=== PATIENT | female | born 1980 | race Caucasian/White ===

== ENCOUNTER 2023-07-02 03:25 | Emergency (ER) | payer MEDICARE, MEDICAID ==
[~2023-07-02] VITALS: Ht 175.3 cm; Wt 130.0 kg
[2023-07-02 03:33] VITALS: BP 146/84; PULSE 99; RESP 14; TEMP 98.9; O2SAT 98
[2023-07-02] MEDS ORDERED: BENZOCAINE (DENTAL) 20 % SPRAY 60ML MT ONE (04:45)
[2023-07-02] MEDS ORDERED: cefTRIAXone SOD 1,000 MG VL IM ONE (05:15)
[2023-07-02] MEDS ORDERED: HYDR-4902 PO (22:26)
[2023-07-02] MEDS ORDERED: CLIN300C70 PO (22:26)
== END 2023-07-02 04:36 | disposition home or self-care (01) ==
LOC: ER 03:25
DX: K08.89 Other specified disorders of teeth and supporting structures (principal)
CPT/HCPCS: 96372; 99283; J0696

== ENCOUNTER 2023-07-02 20:37 | Emergency (ER) | payer MEDICARE, MEDICAID ==
[~2023-07-02] VITALS: Ht 175.3 cm; Wt 130.0 kg
[2023-07-02 20:47] VITALS: BP 130/89; PULSE 113; RESP 20; TEMP 98.8; O2SAT 98
[2023-07-02] MEDS ORDERED: DexAMETHasone SOD PHOS 10MG/1ML VIAL INJ IV ONE (21:45)
[2023-07-02] MEDS ORDERED: AMPICILLIN & SULBACTAM SODIUM 3 GM in SODIUM CHL 0.9% 100 ML IV SCH (21:45)
[2023-07-02] MEDS ORDERED: HYDROcodone-ACET 5/325MG TAB PO ONE (21:45)
[2023-07-02] MEDS ORDERED: CLIN300C70 PO (22:26)
[2023-07-02] MEDS ORDERED: HYDR-4902 PO (22:26)
[2023-07-02] MEDS ORDERED: diphenhdrAMINE HCL 25 MG CAP PO ONE (22:30)
[2023-07-02] MEDS ORDERED: TETANUS-DIPTH-ACEL PERTUSSIS 0.5ML SYR Tdap IM ONE (22:45)
== END 2023-07-02 22:35 | disposition home or self-care (01) ==
LOC: EDBD 20:37 → ER 20:37
DX: L03.211 Cellulitis of face (principal); K04.7 Periapical abscess without sinus; K02.9 Dental caries, unspecified
CPT/HCPCS: 90471; 90715; 96365; 96375; 99284; J1100

== ENCOUNTER 2024-01-01 13:07 | Emergency (ER) | payer MEDICARE, MEDICAID ==
[~2024-01-01] VITALS: Ht 175.3 cm; Wt 117.3 kg
[~2024-01-01 13:07] MED LIST: CLIN1CAP70 PO; HYDR-4902 PO
[2024-01-01] MEDS ORDERED: ACET-1080 PO (14:19)
[2024-01-01] MEDS ORDERED: NIRM1TAB7 PO (14:19)
[2024-01-01 14:20] VITALS: BP 106/77; PULSE 107; RESP 24; TEMP 97.9; O2SAT 99
[2024-01-01] MEDS ORDERED: PROM1SOL4 PO (17:54)
== END 2024-01-01 14:24 | disposition home or self-care (01) ==
LOC: ER 13:12
DX: U07.1 COVID-19 (principal); H92.09 Otalgia, unspecified ear
CPT/HCPCS: 71045